=== PATIENT | female | born 1985 | race Caucasian/White ===

== ENCOUNTER 2018-02-08 17:53 | Emergency (ER) | payer OTHER ==
[~2018-02-08] VITALS: Ht 170.2 cm; Wt 79.4 kg
[~2018-02-08 17:53] MED LIST: FLUCONAZOLE 10 MG/ML; PRENATAL1 TAB
== END 2018-02-08 22:22 | disposition home or self-care (01) ==
LOC: ER 17:53
DX: O20.0 Threatened abortion (principal); Z34.81 Encounter for supervision of other normal pregnancy, first trimester

== ENCOUNTER 2018-08-13 06:27 | Inpatient (IN) | payer OTHER ==
[~2018-08-13] VITALS: Ht 170.2 cm; Wt 117.9 kg
== END 2018-08-15 13:38 | disposition home or self-care (01) | DRG 798 ==
LOC: OB/GYN 06:27 → LDR 06:27 → OB/GYN 13:46
PROVIDERS: ADMIT Obstetrics & Gynecology Obstetrics
PROC: 0UB70ZZ Excision of Bilateral Fallopian Tubes, Open Approach (ICD-10-PCS; 2018-08-13)
PROC: 4A1HXCZ Monitoring of Products of Conception, Cardiac Rate, External Approach (ICD-10-PCS; 2018-08-13)
PROC: 10E0XZZ Delivery of Products of Conception, External Approach (ICD-10-PCS; principal; 2018-08-13 11:00)
DX: O80 Encounter for full-term uncomplicated delivery (principal); Z37.0 Single live birth; Z3A.39 39 weeks gestation of pregnancy; Z30.2 Encounter for sterilization

== ENCOUNTER 2023-02-09 20:54 | Emergency (ER) | payer OTHER ==
[~2023-02-09] VITALS: Ht 170.2 cm; Wt 122.5 kg
[2023-02-09] MEDS ORDERED: MONTELUKAST SODI4 M1 (21:18)
[2023-02-09] MEDS ORDERED: PROVENTIL HFA6.7 GM (21:18)
== END 2023-02-09 22:05 | disposition home or self-care (01) ==
LOC: ER 20:54
DX: H60.92 Unspecified otitis externa, left ear (principal)